=== PATIENT | female | born 1985 | race African-American/Black ===

== ENCOUNTER 2020-05-31 01:43 | Inpatient (IN) | payer BC ==
--- NOTE | 2020-05-31 03:10 | NUR ---
REPORT TO ISSAC STEVE RN. Arthur BRAND RN
[2020-05-31 04:19] LABS: BASOPHILS 0.1 % (0-2); EOSINOPHILS 2.5 % (0-7); HEMATOCRIT 32.9 % (36.0-48.0); HEMOGLOBIN 10.7 g/dL (12-16); IMMATURE GRANULOCYTES 0.4 % (0-5); LYMPHOCYTES 36.8 % (15-50); MCH 29.9 pg (26.0-34.0); MCHC 32.5 g/dL (31.0-37.0); MCV 91.9 fL (80.0-100.0); MEAN PLATELET VOLUME 9.6 fL (7.4-10.4); MONOCYTES 7.5 % (2-11); NEUTROPHILS 52.7 % (40-80); PLATELET COUNT 220 10x3/uL (130-400); RBC 3.58 10x6/uL (4.00-5.40); RDW 13.9 % (11.5-14.5); WBC 9.6 10x3/uL (4.8-10.8)
== END 2020-05-31 07:40 | disposition short-term general hospital (02) | DRG 833 ==
LOC: D.LD 01:43
PROVIDERS: ADMIT Obstetrics & Gynecology; ATTEND Obstetrics & Gynecology
DX: O60.02 Preterm labor without delivery, second trimester (principal); Z3A.23 23 weeks gestation of pregnancy; O46.92 Antepartum hemorrhage, unspecified, second trimester